=== PATIENT | female | born 1975 | race Caucasian/White ===

== ENCOUNTER 2019-09-18 22:38 | Emergency (ER) | payer BC ==
--- NOTE | 2019-09-18 23:15 | EDM.PDOC ---
ED HPI GENERAL MEDICAL PROBLEM - General Chief Complaint: Head Injury Stated Complaint: fall and hit head Time Seen by Provider: 09/18/19 22:38 Source of Information: Reports: Patient, EMS, Family History Limitations: Reports: No Limitations - History of Present Illness INITIAL COMMENTS - FREE TEXT/NARRATIVE: Patient to the emergency department by EMS where she was at a local bar sitting on a table and as she was trying to scoot off of it ended up slipping and striking the right temporal side of the head. The bystanders advised there is no loss of consciousness however the patient does keep repeating the same thing over and over. The patient denies any change in vision she denies any ear pain she denies any neck pain denies any back pain denies any upper or lower extr emity pain denies any chest pain or chest wall pain denies any abdominal pain no nausea no vomiting she denies any hip or pelvis pain she denies any lower extremity pain other than she does have an abrasion to the right knee which she advises does not hurt. The patient's tetanus shot is not up-to-date and this will be updated in the emergency department. The patient's GCS is 4-5-6 and this is not a trauma code. Onset: Today, Sudden Duration: Minutes: Location: Reports: Head, Lower Extremity, Right Quality: Reports: Ache Severity: Mild Improves with: Reports: None Worsens with: Reports: None Context: Reports: Trauma Associated Symptoms: Reports: Headaches. Denies: Chest Pain, Cough, Fever/Chills, Nausea/Vomiting, Shortness of Breath, Weakness Treatments CALKER: Reports: Cervical Collar, Other (see below) Other Treatments CALKER: backboard Head Pain Score (Numeric/FACES): 5 - Related Data Allergies Allergy/AdvReac Type Severity Reaction Status Date / Time No Known Allergies Allergy Verified 09/18/19 23:18 ED ROS GENERAL - Review of Systems Review Of Systems: See Below Constitutional: Reports: No Symptoms HEENT: Reports: No Symptoms. Denies: Ear Pain, Nose Pain, Throat Pain Respiratory: Reports: No Symptoms. Denies: Shortness of Breath Cardiovascular: Reports: No Symptoms. Denies: Chest Pain GI/Abdominal: Reports: No Symptoms. Denies: Abdominal Pain, Nausea, Vomiting : Reports: No Symptoms Musculoskeletal: Denies: Neck Pain, Shoulder Pain, Back Pain, Joint Pain Skin: Reports: Wound (Abrasion to the right temporal vital area no laceration found in the skull/head, abrasion to the right knee with no swelling or deformity) Neurological: Reports: No Symptoms, Headache, Other (The patient is awake alert oriented x3, answers appropriately to person time and place however she does repeat the question of what happened.). Denies: Change in Speech Psychiatric: Reports: No Symptoms ED EXAM, HEAD INJURY - Physical Exam Exam: See Below Exam Limited By: No Limitations General Appearance: Alert, WD/WN, Thin Head: Normocephalic, Other (Abrasion to the right parietal temporal area) Nexus Criteria: Evidence of Intoxication. No: Posterior, Midline Cervical Tenderness, Altered Level of Consciousness, Focal Neurological Deficit Eyes: Bilateral Eye: EOMI, Normal Inspection, PERRL Ears: Normal External Exam, Normal Canal, Hearing Grossly Normal, Normal TMs Nose: Normal Inspection, Normal Mucousa, No Blood Throat/Mouth: Normal Inspection, Normal Oropharynx, Normal Voice, No Airway Compromise Neck: Non-Tender, Full Range of Motion, Normal Alignment, Normal Inspection Respiratory: No Respiratory Distress, Lungs Clear, Normal Breath Sounds, Chest Non-Tender Cardiovascular: Normal Peripheral Pulses, Regular Rate, Rhythm, No Murmur GI/Abdominal Exam: Normal Bowel Sounds, Soft, Non-Tender Back Exam: Normal Inspection, Full Range of Motion Extremities: Normal Range of Motion, Non-Tender, Normal Capillary Refill, Other (Abrasion to the right knee however the patient advised that this does not hurt palpation) Neurologic: collection clerk II-XII nml As Tested, No Motor/Sensory Deficits, Alert, Normal Mood/Affect, Oriented x 3 Skin: Normal Color, Warm/Dry - Compa Coma Score Best Eye Response (Willis): (4) Open Spontaneously Best Verbal Response (Willis): (5) Oriented Best Motor Response (Willis): (6) Obeys Commands Course - Vital Signs Text/Narrative:: 2305 the patient was evaluated in the emergency department, CT the head and neck was performed, I do not see any obvious brain bleed, there does appear to be some abnormality suspect congenital abnormality around the occipital/cerebellar area, the cervical spine I do not see any obvious fractures, however, the radiologist has not read any this and the readings are all pending. X-ray of the right knee does not show any fracture or pre-patella effusion. The patient's tetanus shot has been updated. The patient's wound to the right temporoparietal area has been cleaned and there is an abrasion there there is no laceration noted after me and the nurse evaluating the rest of the skull and head we do not find any other lacerations or abrasions. 2323 the radiologist from [facility] called and advised that the CT of the head neck were negative. See his report for complete details for any acute injury Last Recorded V/S: Last Vital Signs Temp 37.1 C 09/18/19 22:50 Pulse 97 09/18/19 22:50 Resp 18 09/18/19 22:50 BP 145/96 H 09/18/19 22:50 Pulse Ox 100 09/18/19 22:50 - Orders/Labs/Meds Orders: Active Orders 24 hr Category Date Time Status Vaccines to be Administered [RC] PER UNIT ROUTINE Care 09/18/19 23:06 Ordered Cervical Spine wo Cont [CT] Stat Exams 09/18/19 22:39 Taken Head wo Cont [CT] Stat Exams 09/18/19 22:39 Taken Knee 1V or 2V Rt [CR] Stat Exams 09/18/19 22:39 Taken Meds: Medications Discontinued Medications Generic Name Dose Route Start Last Admin Trade Name Freq PRN Reason Stop Dose Admin Diphtheria/Tetanus/Acell Pertussis 0.5 ml 09/18/19 23:06 09/18/19 23:18 Adacel IM 09/18/19 23:07 0.5 ml .ONCE ONE Administration Departure - Departure Time of Disposition: 23:24 Disposition: Home, Self-Care 01 Condition: Good Clinical Impression: Fall, Acute alcohol intoxication, Closed head injury, Abrasion of other part of head, initial encounter, Contusion of right knee, Concussion injury of brain - Discharge Information *PRESCRIPTION DRUG MONITORING PROGRAM REVIEWED*: Not Applicable *COPY OF PRESCRIPTION DRUG MONITORING REPORT IN PATIENT LEO: Not Applicable Instructions: Contusion, [id number], Wound Care, Adult, Head Injury, Adult, [id number], Abrasion, [id number] Forms: ED Department Discharge Additional Instructions: Rest Ice off-and-on frequently to your head as well as your right knee Alternate Tylenol and or Motrin as needed for any pain Follow-up with your family doctor this coming week, call Friday for an appointment time Follow the head injury instructions as well as the other instructions and return to the emergency department sooner if worse or any problems Sepsis Event Note (ED) - Evaluation Sepsis Screening Result: No Definite Risk - Focused Exam Vital Signs: Vital Signs Temp Pulse Resp BP Pulse Ox 09/18/19 22:50 37.1 C 97 18 145/96 H 100 - Problem List & Annotations (1) Abrasion of other part of head, initial encounter SNOMED Code(s): 328994203 Code(s): S00.81XA - ABRASION OF OTHER PART OF HEAD, INITIAL ENCOUNTER Status: Acute Priority: Medium (2) Acute alcohol intoxication SNOMED Code(s): 73668904, 59974818 Code(s): F10.929 - ALCOHOL USE, UNSPECIFIED WITH INTOXICATION, UNSPECIFIED Status: Acute Priority: Medium Qualifiers: Complication of substance-induced condition: with unspecified complication Qualified Code(s): F10.929 - Alcohol use, unspecified with intoxication, unspecified (3) Closed head injury SNOMED Code(s): 514601831688 Code(s): S09.90XA - UNSPECIFIED INJURY OF HEAD, INITIAL ENCOUNTER Status: Acute Priority: Medium Qualifiers: Encounter type: initial encounter Qualified Code(s): S09.90XA - Unspecified injury of head, initial encounter (4) Concussion injury of brain SNOMED Code(s): 743776421 Code(s): S06.0X9A - CONCUSSION W LOSS OF CONSCIOUSNESS OF UNSP DURATION, INIT Status: Acute Priority: Medium (5) Contusion of right knee SNOMED Code(s): 58871784 Code(s): S80.01XA - CONTUSION OF RIGHT KNEE, INITIAL ENCOUNTER Status: Acute Priority: Medium Qualifiers: Encounter type: initial encounter Qualified Code(s): S80.01XA - Contusion of right knee, initial encounter (6) Fall SNOMED Code(s): 1718465, 488097907 Code(s): W19.XXXA - UNSPECIFIED FALL, INITIAL ENCOUNTER Status: Acute Priority: Medium Qualifiers: Encounter type: initial encounter Qualified Code(s): W19.XXXA - Unspecified fall, initial encounter - Problem List Review Problem List Initiated/Reviewed/Updated: Yes - My Orders Last 24 Hours: My Active Orders 09/18/19 22:39 Cervical Spine wo Cont [CT] Stat Head wo Cont [CT] Stat Knee 1V or 2V Rt [CR] Stat 09/18/19 23:06 Vaccines to be Administered [RC] PER UNIT ROUTINE - Assessment/Plan Last 24 Hours: My Active Orders 09/18/19 22:39 Cervical Spine wo Cont [CT] Stat Head wo Cont [CT] Stat Knee 1V or 2V Rt [CR] Stat 09/18/19 23:06 Vaccines to be Administered [RC] PER UNIT ROUTINE Plan: The patient's past medical history, past surgical history, social history as well as past family medical history reviewed see the nursing notes for complete details
[2019-09-18] MEDS: Diphtheria,Pertussis(Acell),Tetanus Vaccine 0.5 ML Syringe IM ONE (23:18)
== END 2019-09-18 23:30 | disposition home or self-care (01) ==
LOC: CC.ED 22:38
DX: S06.0X0A Concussion without loss of consciousness, initial encounter (principal); S80.01XA Contusion of right knee, initial encounter; S00.81XA Abrasion of other part of head, initial encounter; F10.129 Alcohol abuse with intoxication, unspecified; Z23 Encounter for immunization; W08.XXXA Fall from other furniture, initial encounter; Y92.511 Restaurant or cafe as the place of occurrence of the external cause
CPT/HCPCS: 70450; 72125; 73560-RT; 90471; 90715; 99284-25